=== PATIENT | female | born 1985 | race American Indian/Alaskan Native ===

== ENCOUNTER 2018-02-20 21:26 | Emergency (ER) | payer MEDICAID ==
[~2018-02-20] VITALS: Ht 154.9 cm; Wt 98.2 kg
[~2018-02-20 21:26] MED LIST: BENZ30CR TP; IBUP-1574 PO
[2018-02-20] MEDS ORDERED: orphenadrine citrate 60mg/2ml inj. IM ONE (23:10)
[2018-02-20] MEDS ORDERED: ketorolac trometh inj. 60 MG/2 ML VIAL IM ONE (23:10)
[2018-02-20] MEDS ORDERED: IBUP-1985 PO (23:32)
[2018-02-20] MEDS ORDERED: ORPH100T2 PO (23:32)
[2018-02-20 23:39] VITALS: BP 148/91
== END 2018-02-20 23:42 | disposition home or self-care (01) ==
LOC: ER 21:27
DX: M54.5 Low back pain (principal); M54.6 Pain in thoracic spine; Z88.8 Allergy status to other drugs, medicaments and biological substances
CPT/HCPCS: 96372; 99284; J1885; J2360

== ENCOUNTER 2018-06-17 15:52 | Emergency (ER) | payer MEDICAID, OTHER ==
[~2018-06-17] VITALS: Ht 152.4 cm; Wt 109.1 kg
[~2018-06-17 15:52] MED LIST changes: +IBUP-1985 PO; +ORPH100T2 PO
[2018-06-17 15:55] VITALS: BP 158/107
== END 2018-06-17 17:02 ==
LOC: ER 15:53
DX: Z02.89 Encounter for other administrative examinations (principal); F12.90 Cannabis use, unspecified, uncomplicated; Z88.6 Allergy status to analgesic agent
CPT/HCPCS: 99283

== ENCOUNTER 2018-07-02 22:06 | Inpatient (IN) | payer MEDICAID, OTHER ==
[~2018-07-02] VITALS: Ht 152.4 cm; Wt 111.0 kg
[~2018-07-02 22:06] MED LIST changes: +temazepam 15mg capsule PO PRN
[2018-07-02] MEDS ORDERED: normal saline 1000ML IV soln IV ONE (22:20)
[2018-07-02] MEDS ORDERED: acetaminophen 325mg tablet PO STA (22:20)
[2018-07-02 23:04] LABS: BASOPHILS # (AUTO) 0.1 X10'3 (0-0.2); BASOPHILS % (AUTO) 0.6 % (0-1); EOSINOPHILS # (AUTO) 0.2 X10'3 (0-0.9); EOSINOPHILS % (AUTO) 1.5 % (0-6); HEMATOCRIT 37.1 % (35.0-45.0); HEMOGLOBIN 11.9 g/dl (12.0-16.0); LYMPHOCYTES % (AUTO) 8.6 % (21-51); MEAN CORPUSCULAR HEMOGLOBIN 26.6 PG (27.0-31.0); MEAN CORPUSCULAR VOLUME 83.1 FL (78-98); MEAN PLATELET VOLUME 9.7 FL (7.4-10.4); MONOCYTES # (AUTO) 0.7 X10'3 (0-0.9); MONOCYTES % (AUTO) 5.8 % (2-12); NEUTROPHILS # (AUTO) 9.5 X10'3 (1.8-7.7); NEUTROPHILS % (AUTO) 83.5 % (42-75); PLATELET COUNT 258 X10'3 (140-440); RED BLOOD COUNT 4.47 X10'6 (4.20-5.60); RED CELL DISTRIBUTION WIDTH 16.1 % (11.5-14.5); WHITE BLOOD COUNT 11.4 X10'3 (4.5-11.0)
[2018-07-02 23:10] LABS: ALANINE AMINOTRANSFERASE 29 U/L (12-78); ALBUMIN 3.3 G/DL (3.4-5.0); ALBUMIN/GLOBULIN RATIO 0.8 (1.1-1.5); ALKALINE PHOSPHATASE 70 IU/L (46-116); ANION GAP 10 (8-16); ASPARTATE AMINO TRANSFERASE 46 U/L (10-37); BILIRUBIN,TOTAL 0.2 MG/DL (0.1-1.0); BLOOD UREA NITROGEN 7 MG/DL (7-18); BUN/CREATININE RATIO 7.4 (6.6-38.0); CALCIUM 9.4 MG/DL (8.5-10.1); CHLORIDE 101 MMOL/L (99-107); CREATININE 0.95 MG/DL (0.40-0.90); GLUCOSE 128 MG/DL (70-104); MAGNESIUM 1.4 MG/DL (1.5-2.4); POTASSIUM 3.8 MMOL/L (3.5-5.1); SODIUM 140 MMOL/L (135-145); TOTAL CARBON DIOXIDE 29.4 MMOL/L (24-32); TOTAL PROTEIN 7.2 G/DL (6.4-8.2); eGFR 69 ML/MIN
[2018-07-02] MEDS ORDERED: albuterol 2.5 MG/3 ML nebule NEB ONE (23:35)
[2018-07-02] MEDS ORDERED: CefTRIAXone 2gm/D5W 50ml 50 ML IV ONE (23:45)
[2018-07-03] MEDS ORDERED: potassium Cl 20 mEq SR tablet PO PRN ×2
[2018-07-03] MEDS ORDERED: mag hydrox/Alum hydrox/simeth 30ml oral suspension PO PRN
[2018-07-03] MEDS ORDERED: magnesium 2GM in 50ml NS 50 ML IV PRN
[2018-07-03] MEDS ORDERED: ondansetron/PF 4mg/2ml inj IV PRN
[2018-07-03] MEDS ORDERED: acetaminophen 325mg tablet PO PRN ×2
[2018-07-03] MEDS ORDERED: magnesium hydroxide 30ml (MOM) UD suspension PO PRN
[2018-07-03] MEDS ORDERED: potassium Cl 40MEQ/NS 500ml 500 ML IV PRN ×2
[2018-07-03] MEDS ORDERED: magnesium 4gm in 100ml NS 100 ML IV PRN
[2018-07-03] MEDS ORDERED: ketorolac trometh. 30mg/ml inj. IV ONE
[2018-07-03] MEDS ORDERED: iohexol 350MG/ML 100ml bottle IV ONE (00:47)
[2018-07-03 01:22] LABS: CLARITY,URINE CLEAR (Clear); COLOR,URINE YELLOW (Yellow); GLUCOSE, URINE NEGATIVE (Neg); KETONES,URINE NEGATIVE (Neg); LEUKOCYTE ESTERASE ,URINE NEGATIVE (Neg); NITRITES, URINE NEGATIVE (Neg); OCCULT BLOOD,URINE NEGATIVE (Neg); PROTEIN,URINE NEGATIVE (Neg); UROBILINOGEN,URINE 0.2 E.U/dL (0.2-1.0)
[2018-07-03 01:24] LABS: URINE HCG NEGATIVE (NEG)
[2018-07-03 01:27] LABS: UA COLLECTION TYPE CLN CATCH MIDSTREAM
[2018-07-03 01:34] LABS: URINE AMPHETAMINE SCREEN NEGATIVE (Neg); URINE BARBITUATE SCREEN NEGATIVE (Neg); URINE BENZODIAZEPINES SCREEN POSITIVE (Neg); URINE CANNABINOID SCREEN POSITIVE (Neg); URINE COCAINE SCREEN NEGATIVE (Neg); URINE METHADONE SCREEN NEGATIVE (Neg); URINE OPIATE SCREEN NEGATIVE (Neg); URINE PHENCYCLIDINE SCREEN NEGATIVE (Neg)
--- NOTE | 2018-07-03 01:52 | NUR ---
PT BACK FROM CT - RESTING ON [facility]
--- NOTE | 2018-07-03 04:30 | NUR ---
Received report from ER nurse Jeannette BILL. Will assume patient care.
[2018-07-03 04:55] VITALS: BP 105/65
[2018-07-03] MEDS: magnesium Cl slow-release 64mg tablet PO PRN ×2 (04:57→17:10)
[2018-07-03] MEDS: HYDROcodone/acetaminophen 5mg/325mg tablet PO PRN ×5 (05:07→22:02)
--- NOTE | 2018-07-03 06:34 | NUR ---
Report given to Misa BILL.
[2018-07-03 07:00] VITALS: BP 113/63
--- NOTE | 2018-07-03 07:00 | NUR ---
Patient in room [facility]. I have received report from Isabelle and had the opportunity to ask questions and assume patient care. Addendum: 07/03/18 at 1047 by Misa Conroy RN Amended: Links added.
[2018-07-03] MEDS: K and/or MAG REPLACEMENT MC SCH (08:00)
[2018-07-03] MEDS ORDERED: BACL10TA PO (08:38)
[2018-07-03] MEDS ORDERED: OLAN5TAB5 PO (08:40)
[2018-07-03] MEDS ORDERED: FLUO20CA39 PO (08:41)
[2018-07-03] MEDS: furosemide 20 MG/2 ML vial IV SCH ×2 (10:01→20:03)
[2018-07-03] MEDS: levoFLOXACIN-Levaquin 750MG/D5 150 ML IV SCH (10:02)
[2018-07-03] MEDS: morphine 2 MG/ML inj. syringe IV PRN ×3 (11:09→20:08)
[2018-07-03 12:00] VITALS: BP 108/66
[2018-07-03] MEDS: albuterol 2.5 MG/3 ML nebule NEB PRN ×2 (16:07→19:34)
[2018-07-03 18:00] VITALS: BP 121/71
--- NOTE | 2018-07-03 18:26 | NUR ---
Problems reprioritized. Patient report given, questions answered & plan of care reviewed with Jesus Manuel. Addendum: 07/03/18 at 1827 by Misa Conroy RN Amended: Links added.
--- NOTE | 2018-07-03 18:30 | NUR ---
Patient in room [facility]. I have received report from Misa BILL and had the opportunity to ask questions and assume patient care. Pt has family visiting at this time.
[2018-07-03] MEDS: lactobacillus rhamnosus 10,000 MMU CELLS/CAPSULE PO SCH (20:02)
[2018-07-03] MEDS: baclofen 10mg tablet PO SCH (20:02)
[2018-07-03 23:00] VITALS: BP 116/71
[2018-07-04] MEDS: morphine 2 MG/ML inj. syringe IV PRN ×5 (00:17→20:51)
[2018-07-04] MEDS: HYDROcodone/acetaminophen 5mg/325mg tablet PO PRN ×5 (03:15→22:40)
[2018-07-04 05:58] LABS: MAGNESIUM 1.7 MG/DL (1.5-2.4); POTASSIUM 3.8 MMOL/L (3.5-5.1)
--- NOTE | 2018-07-04 06:30 | NUR ---
Problems reprioritized. Patient report given, questions answered & plan of care reviewed with Batsheva BILL.
--- NOTE | 2018-07-04 06:31 | NUR ---
Patient in room [facility]. I have received report from FLY Ken and had the opportunity to ask questions and assume patient care.
[2018-07-04 07:07] VITALS: BP 115/70
[2018-07-04] MEDS: K and/or MAG REPLACEMENT MC SCH (08:00)
[2018-07-04] MEDS: furosemide 20 MG/2 ML vial IV SCH ×2 (08:05→19:56)
[2018-07-04] MEDS: lactobacillus rhamnosus 10,000 MMU CELLS/CAPSULE PO SCH ×2 (08:05→19:56)
[2018-07-04] MEDS: levoFLOXACIN-Levaquin 750MG/D5 150 ML IV SCH (08:06)
[2018-07-04] MEDS: OLANZapine 5mg rapidly disint. tablet PO SCH (08:06)
[2018-07-04] MEDS: albuterol 2.5 MG/3 ML nebule NEB PRN (11:28)
[2018-07-04 11:30] VITALS: BP 118/71
[2018-07-04 18:00] VITALS: BP 109/63
--- NOTE | 2018-07-04 18:30 | NUR ---
Patient in room [facility]. I have received report from Batsheva BILL and had the opportunity to ask questions and assume patient care.
[2018-07-04] MEDS: baclofen 10mg tablet PO SCH (20:00)
[2018-07-04 23:59] VITALS: BP 115/49
[2018-07-05] MEDS: morphine 2 MG/ML inj. syringe IV PRN ×3 (00:53→12:13)
[2018-07-05] MEDS: HYDROcodone/acetaminophen 5mg/325mg tablet PO PRN ×2 (05:09→09:59)
--- NOTE | 2018-07-05 06:25 | NUR ---
Patient in room [facility]. I have received report from VIANEY BILL and had the opportunity to ask questions and assume patient care.
--- NOTE | 2018-07-05 06:39 | NUR ---
Problems reprioritized. Patient report given, questions answered & plan of care reviewed with LIBBY BILL.
[2018-07-05 06:43] LABS: ANION GAP 8 (8-16); BLOOD UREA NITROGEN 9 MG/DL (7-18); BUN/CREATININE RATIO 11.8 (6.6-38.0); CALCIUM 9.5 MG/DL (8.5-10.1); CHLORIDE 100 MMOL/L (99-107); CREATININE 0.76 MG/DL (0.40-0.90); GLUCOSE 118 MG/DL (70-104); MAGNESIUM 1.8 MG/DL (1.5-2.4); POTASSIUM 3.8 MMOL/L (3.5-5.1); SODIUM 137 MMOL/L (135-145); TOTAL CARBON DIOXIDE 29.4 MMOL/L (24-32); eGFR 89 ML/MIN
[2018-07-05 07:00] VITALS: BP 127/61
[2018-07-05] MEDS: K and/or MAG REPLACEMENT MC SCH (07:17)
[2018-07-05] MEDS: albuterol 2.5 MG/3 ML nebule NEB PRN (07:24)
[2018-07-05] MEDS: lactobacillus rhamnosus 10,000 MMU CELLS/CAPSULE PO SCH (07:25)
[2018-07-05] MEDS: levoFLOXACIN-Levaquin 750MG/D5 150 ML IV SCH (07:25)
[2018-07-05] MEDS: furosemide 20 MG/2 ML vial IV SCH (07:25)
[2018-07-05] MEDS: OLANZapine 5mg rapidly disint. tablet PO SCH (07:28)
[2018-07-05] MEDS ORDERED: FURO-150 PO (08:54)
[2018-07-05] MEDS ORDERED: LEVO750T21 PO (08:54)
--- NOTE | 2018-07-05 10:04 | NUR ---
O2 Sat at rest on room air:_87__% If below 89%: Recovery O2 Sat at rest on ___LPM:___%:4___% via__nc (mask/nasal cannula, etc..) No further documentation is necessary. If O2 Sat did not drop below 89% on room air,ambulate patient on room air. O2 Sat while ambulating on room air:___% Recovery O2 Sat while ambulating on ___LPM:___% No further documentation is necessary. If patient does not drop below 89% while ambulating, he/she does not qualify for home O2.
--- NOTE | 2018-07-05 14:03 | NUR ---
PT DISCHARGED IN STABLE CONDITION. LEFT WITH PORTABLE 02. IV DC CANULA INTACT. ALL BELONGINGS IN HAND. FOLLOW UP INSTRUCTIONS GIVEN, ALL QUESTIONS ANSWERED. Addendum: 07/05/18 at 1404 by Delfina Colin RN Amended: Links added.
== END 2018-07-05 14:05 | disposition home or self-care (01) | DRG 133 ==
LOC: ER 22:06 → ED HOLD 23:59 → OBSVTOIN 23:59 → EDBEDREQ 07-03 03:44 → SUR 3N 07-03 04:30 → CMPBEDREQ 07-03 04:53
PROVIDERS: ADMIT Hospitalist; ATTEND Internal Medicine
DX: J96.01 Acute respiratory failure with hypoxia (principal); J18.9 Pneumonia, unspecified organism; E87.2 Acidosis; I27.81 Cor pulmonale (chronic); E83.42 Hypomagnesemia; E66.01 Morbid (severe) obesity due to excess calories; I50.9 Heart failure, unspecified; F12.90 Cannabis use, unspecified, uncomplicated; J20.9 Acute bronchitis, unspecified; G47.30 Sleep apnea, unspecified; F17.210 Nicotine dependence, cigarettes, uncomplicated; Z68.42 Body mass index [BMI] 45.0-49.9, adult
CPT/HCPCS: 36415; 71045; 71275; 80048; 80053; 80305; 81003; 81025; 83605; 83735; 83880; 84132; 84145; 84443; 85025; 87040; 87070; 87502; 87503; 93005; 93306; 94640; 94760; 96360; 99285; G0378; J0696; J1885; J1940; J1956; J2270; Q9967

== ENCOUNTER 2018-08-09 19:30 | Emergency (ER) | payer MEDICAID, OTHER ==
[~2018-08-09] VITALS: Ht 152.4 cm; Wt 95.5 kg
[~2018-08-09 19:30] MED LIST changes: +BACL10TA PO; -BENZ30CR TP; +FLUO20CA39 PO; +FURO-150 PO; -IBUP-1574 PO; -IBUP-1985 PO; +OLAN5TAB5 PO; -ORPH100T2 PO; -temazepam 15mg capsule PO PRN
[2018-08-09 19:37] VITALS: BP 126/78
[2018-08-09] MEDS ORDERED: HYDROcodone/acetaminophen 5mg/325mg tablet PO ONE (21:45)
[2018-08-09] MEDS ORDERED: CEPH-572 PO (21:50)
[2018-08-09] MEDS ORDERED: IBUP-1985 PO (21:53)
== END 2018-08-09 21:59 | disposition home or self-care (01) ==
LOC: ER 19:31
DX: L02.411 Cutaneous abscess of right axilla (principal); L03.111 Cellulitis of right axilla; F12.90 Cannabis use, unspecified, uncomplicated; Z88.8 Allergy status to other drugs, medicaments and biological substances; Z79.899 Other long term (current) drug therapy
CPT/HCPCS: 99283

== ENCOUNTER 2019-09-12 20:27 | Emergency (ER) | payer MEDICAID ==
[~2019-09-12] VITALS: Ht 152.4 cm; Wt 109.1 kg
[~2019-09-12 20:27] MED LIST changes: +IBUP-1985 PO
[2019-09-12] MEDS ORDERED: fentaNYL/PF 50MCG/1 ML 2ML syringe IM ONE (21:00)
[2019-09-12] MEDS ORDERED: fentaNYL/PF 50MCG/1 ML 2ML syringe IV ONE (21:00)
--- NOTE | 2019-09-12 21:40 | NUR ---
CALLED [facility]ISHER JETHRO AT [phone]
[2019-09-12] MEDS ORDERED: morphine 10mg/ml inj. IM ONE (22:30)
[2019-09-12] MEDS ORDERED: DOCU100C40 PO (22:50)
[2019-09-12] MEDS ORDERED: HYDR-3965 PO (22:50)
--- NOTE | 2019-09-12 22:52 | NUR ---
account technician completed Ortho orders.
[2019-09-12] MEDS ORDERED: CEPH-572 PO (22:59)
[2019-09-12 23:32] VITALS: BP 136/82
== END 2019-09-12 23:36 | disposition home or self-care (01) ==
LOC: ER 20:27
DX: S82.832A Other fracture of upper and lower end of left fibula, initial encounter for closed fracture (principal); S82.122A Displaced fracture of lateral condyle of left tibia, initial encounter for closed fracture; F31.9 Bipolar disorder, unspecified; F12.90 Cannabis use, unspecified, uncomplicated; Z79.2 Long term (current) use of antibiotics; Z79.899 Other long term (current) drug therapy; W10.9XXA Fall (on) (from) unspecified stairs and steps, initial encounter; Y93.E5 Activity, floor mopping and cleaning; Y92.89 Other specified places as the place of occurrence of the external cause; Y99.8 Other external cause status
CPT/HCPCS: 29515; 73590; 73610; 96372; 99284; J2270; J3010

== ENCOUNTER 2019-09-22 10:47 | Day surgery (SDC) | payer MEDICAID ==
[~2019-09-22] VITALS: Ht 152.4 cm; Wt 108.9 kg
[2019-09-22] VITALS (23 sets, daily range): BP systolic 122–158; BP diastolic 86–98
[~2019-09-22 10:47] MED LIST changes: +DOCU100C40 PO; +cefazolin/dext.iso 2gm/50ml 50 ML IV ONE; +famotidine 20mg tablet PO ONE; +ringers solution, lacted 1,000 ML IV SCH; +vancomycin 1,500 MG in NS 300ml IV soln IV ONE
--- NOTE | 2019-09-22 11:00 | NUR ---
COVID 19 VERBAL SCREENING COMPLETED. PASSED ALL QUESTIONS.
[2019-09-22] MEDS ORDERED: ringers solution, lacted 1,000 ML IV SCH (12:48)
[2019-09-22] MEDS ORDERED: ondansetron/PF 4mg/2ml inj IV PRN (12:50)
[2019-09-22] MEDS ORDERED: meperidine/PF 25mg/ml syringe IV PRN ×2 (12:50)
[2019-09-22] MEDS ORDERED: proCHLORperazine 10 MG/2 ml inj IV PRN (12:50)
[2019-09-22] MEDS ORDERED: morphine 2 MG/ML inj. syringe IV PRN (12:50)
[2019-09-22 12:57] LABS: BASOPHILS % (AUTO) 0.5 % (0-1); EOSINOPHILS # (AUTO) 0.2 X10'3 (0-0.9); EOSINOPHILS % (AUTO) 2.7 % (0-6); LYMPHOCYTES # (AUTO) 1.9 X10'3 (1.1-4.8); LYMPHOCYTES % (AUTO) 28.1 % (21-51); MEAN CORPUSCULAR HEMOGLOBIN 28.9 PG (27.0-31.0); MEAN CORPUSCULAR HGB CONC 32.7 g/dL (33.0-36.5); MEAN CORPUSCULAR VOLUME 88.4 FL (78-98); MEAN PLATELET VOLUME 9.5 FL (7.4-10.4); MONOCYTES # (AUTO) 0.5 X10'3 (0-0.9); MONOCYTES % (AUTO) 7.9 % (2-12); NEUTROPHILS % (AUTO) 60.8 % (42-75); PRE OP HEMATOCRIT 44.5 % (35.0-45.0); PRE OP HEMOGLOBIN 14.5 g/dL (12.0-16.0); PRE OP PLATELET COUNT 338 X10'3 (140-440); RED BLOOD COUNT 5.03 X10'6 (4.20-5.60); RED CELL DISTRIBUTION WIDTH 13.8 % (11.5-14.5)
[2019-09-22 13:17] LABS: HCG SERUM QL NEGATIVE
[2019-09-22] MEDS ORDERED: NO HOME MEDS (13:34)
[2019-09-22] MEDS ORDERED: fentaNYL/PF 50MCG/1 ML 2ML syringe ONE ×2 (13:40→14:33)
[2019-09-22] MEDS ORDERED: MIDAZolam 5mg/5ml vial ONE (13:40)
[2019-09-22] MEDS ORDERED: ROPIVAcaine 0.5% (5mg/ml) 30ml vial ONE (13:41)
[2019-09-22] MEDS ORDERED: ondansetron/PF 4mg/2ml inj ONE (13:47)
[2019-09-22] MEDS ORDERED: sevoflurane 250ml liquid IH ONE (13:47)
[2019-09-22] MEDS ORDERED: propofol inj 20 ML IV ONE (14:28)
[2019-09-22] MEDS ORDERED: dexamethasone sod phosphate 4mg/ml inj. ONE (14:28)
[2019-09-22] MEDS ORDERED: LIDOcaine 2% (20mg/ml) 5ml vial ONE (14:28)
[2019-09-22] MEDS ORDERED: ketorolac trometh. 30mg/ml inj. ONE (15:25)
--- NOTE | 2019-09-22 15:30 | NUR ---
Received from OR via [facility], accompanied by Anesthesiologist DR COX and report given by Anesthesiologist. PT DROWSY, PAINFUL, LEFT ANKLE/FOOT/LOWER LEG IN SPLINT W/ANDREW WRAP COVERING, TOES PWD, NETWORK RELAY TESTER 1-2 SECONDS. Addendum: 09/22/19 at 1617 by Monica Mott RN Amended: Links added.
[2019-09-22] MEDS: meperidine/PF 25mg/ml syringe IV PRN ×4 (15:34→16:43)
[2019-09-22] MEDS: morphine 4 MG/ML inj SYRINge IV PRN ×6 (15:47→19:24)
[2019-09-22] MEDS ORDERED: HYDROcodone/acetaminophen 10/325mg tab PO ONE (16:55)
[2019-09-22] MEDS ORDERED: acetaminophen 1,000mg/100ml IV 100 ML IV ONE (16:55)
[2019-09-22] MEDS ORDERED: ketorolac trometh. 30mg/ml inj. IV ONE (16:55)
[2019-09-22] MEDS ORDERED: ketamine 50 mg/ml 10ml vial IV ONE (17:55)
[2019-09-22] MEDS ORDERED: normal saline 1000ml 1,000 ML IV SCH (20:11)
[2019-09-22] MEDS ORDERED: potassium CL 10mEq/100ml bag 100 ML IV PRN ×2 (20:15)
[2019-09-22] MEDS ORDERED: magnesium Cl slow-release 64mg tablet PO PRN (20:15)
[2019-09-22] MEDS ORDERED: magnesium 4gm in 100ml NS 100 ML IV PRN (20:15)
[2019-09-22] MEDS ORDERED: potassium Cl 20 mEq SR tablet PO PRN ×2 (20:15)
[2019-09-22] MEDS ORDERED: magnesium hydroxide 30ml (MOM) UD suspension PO PRN (20:15)
[2019-09-22] MEDS ORDERED: magnesium 2GM in 50ml NS 50 ML IV PRN (20:15)
--- NOTE | 2019-09-22 20:25 | NUR ---
Patient in room [facility] 4015. I have received report from FLY Anderson in OR and had the opportunity to ask questions and assume patient care.
--- NOTE | 2019-09-22 20:30 | NUR ---
Report called to receiving nurse. Transferred via BED, 1 BAG OF Belongings, CELL PHONE W/MANAGER ZONE SENT W/PT TO ROOM 4015A, PT TRANSFERRED TO ORTHO BED, TOLERATED FAIR, REMAINS PAINFUL, VSS, ADULT HEALTH CLINICAL NURSE SPECIALIST AT BEDSIDE TO RECEIVE PT. Special Issues communicated to receiving nurse. YES. Addendum: 09/22/19 at 2046 by oMnica Mott RN Amended: Links added.
--- NOTE | 2019-09-22 22:07 | NUR ---
Call to Dr. Laurent re pain management. Pt states she is in a lot of pain, no pain meds ordered. said she had a lot of pain meds post op and will she her soon and did not order anything at this time. I told her she may leave ama.
--- NOTE | 2019-09-22 22:10 | NUR ---
Received report from Kary BILL. Have been advised that patient is threatening to leave AMA is does not see her soon. Addendum: 09/23/19 at 0007 by Heather Hernandez RN If MD does not see her soon
--- NOTE | 2019-09-22 22:15 | NUR ---
Dr Laurent in to see patient.
[2019-09-22] MEDS ORDERED: traMADol 50MG tablet PO PRN (22:20)
--- NOTE | 2019-09-22 22:20 | NUR ---
Resource nurse went in to attach tele monitor and found patient on her phone instructing her to come pick her up as she wanted to leave. I went in to explain that Dr Laurent had written an order for pain medication and that also the surgeon had called back with orders also and we were awaiting pharmacy to verify. Patient stated that she didn't care as she had "been waiting 6 hours for pain medicine" and would take pain medicine at home if she needed it. Of note, patient did not get to floor until around 2044. Discussed that the MD had wanted patient to stay so that we could monitor her heart and o2 sats after all the medicine that she had received in the recovery room, but patient just stated " I don't care, I am leaving and that doctor lied to me". Unable to change patients mind. AMA form signed and patient was taken down to lobby via w/c along with all of her personal belongings. Addendum: 09/23/19 at 0041 by Heather Hernandez RN Patients dressing to LLE intact w/o any sign of drainage. All toes to L foot swollen, but patient stated able to feel and no tingling or numbness.
[2019-09-23] MEDS ORDERED: K and/or MAG REPLACEMENT MC SCH (08:00)
[2019-09-23] MEDS ORDERED: docusate sod 100mg capsule PO SCH (08:00)
== END 2019-09-22 22:40 | disposition home or self-care (01) ==
LOC: PAS 10:47 → UNDOADMIN 20:11 → ORTHO 4S 20:11 → PAS 22:40 → UNDODISIN 22:40
PROVIDERS: ATTEND Orthopaedic Surgery
DX: S82.852A Displaced trimalleolar fracture of left lower leg, initial encounter for closed fracture (principal); G47.30 Sleep apnea, unspecified; G89.18 Other acute postprocedural pain; E66.01 Morbid (severe) obesity due to excess calories; Z68.42 Body mass index [BMI] 45.0-49.9, adult; F17.210 Nicotine dependence, cigarettes, uncomplicated; Z88.8 Allergy status to other drugs, medicaments and biological substances; Z79.899 Other long term (current) drug therapy; W19.XXXA Unspecified fall, initial encounter; Y93.89 Activity, other specified; Y92.89 Other specified places as the place of occurrence of the external cause; Y99.8 Other external cause status
CPT/HCPCS: 27822; 36415; 64445; 64447; 73600; 76000; 84703; 85025; A6222; C1713; J0131; J1100; J1885; J2001; J2175; J2250; J2270; J2405; J2704; J3010; J3370; J7030; J7040; J7120; A4618; A6449; A7000; G0378; J2795

== ENCOUNTER 2020-02-13 14:03 | Emergency (ER) | payer MEDICAID ==
[~2020-02-13] VITALS: Ht 152.4 cm; Wt 112.4 kg
[~2020-02-13 14:03] MED LIST changes: -BACL10TA PO; -DOCU100C40 PO; -FLUO20CA39 PO; -FURO-150 PO; -IBUP-1985 PO; +NO HOME MEDS; -OLAN5TAB5 PO; -cefazolin/dext.iso 2gm/50ml 50 ML IV ONE; -famotidine 20mg tablet PO ONE; -ringers solution, lacted 1,000 ML IV SCH; -vancomycin 1,500 MG in NS 300ml IV soln IV ONE
[2020-02-13 16:30] VITALS: BP 160/98
== END 2020-02-13 16:33 | disposition home or self-care (01) ==
LOC: ER 14:04
DX: R05 Cough (principal); R06.02 Shortness of breath; M79.10 Myalgia, unspecified site; F31.9 Bipolar disorder, unspecified; F12.10 Cannabis abuse, uncomplicated; Z88.2 Allergy status to sulfonamides
CPT/HCPCS: 36415; 99281

== ENCOUNTER 2020-03-31 11:23 | Emergency (ER) | payer MEDICAID ==
[~2020-03-31] VITALS: Ht 154.9 cm; Wt 106.0 kg
[2020-03-31 11:57] LABS: MONOCYTES # (AUTO) 0.5 X10'3 (0-0.9)
[2020-03-31 11:59] LABS: BASOPHILS # (AUTO) 0.1 X10'3 (0-0.2); BASOPHILS % (AUTO) 0.8 % (0-1); EOSINOPHILS # (AUTO) 0.1 X10'3 (0-0.9); EOSINOPHILS % (AUTO) 1.8 % (0-6); HEMATOCRIT 45.5 % (35.0-45.0); HEMOGLOBIN 15.3 g/dl (12.0-16.0); LYMPHOCYTES # (AUTO) 2.1 X10'3 (1.1-4.8); LYMPHOCYTES % (AUTO) 30.5 % (21-51); MEAN CORPUSCULAR HEMOGLOBIN 30.3 PG (27.0-31.0); MEAN CORPUSCULAR HGB CONC 33.7 g/dL (33.0-36.5); MEAN CORPUSCULAR VOLUME 90.1 FL (78-98); MEAN PLATELET VOLUME 10.7 FL (7.4-10.4); MONOCYTES % (AUTO) 6.8 % (2-12); NEUTROPHILS # (AUTO) 4.2 X10'3 (1.8-7.7); NEUTROPHILS % (AUTO) 60.1 % (42-75); PLATELET COUNT 260 X10'3 (140-440); RED BLOOD COUNT 5.05 X10'6 (4.20-5.60); WHITE BLOOD COUNT 6.9 X10'3 (4.5-11.0)
[2020-03-31 12:03] LABS: ALANINE AMINOTRANSFERASE 60 U/L (12-78); ALBUMIN 3.9 G/DL (3.4-5.0); ALKALINE PHOSPHATASE 75 IU/L (46-116); ANION GAP 7 (8-16); ASPARTATE AMINO TRANSFERASE 65 U/L (10-37); BILIRUBIN,TOTAL 0.4 MG/DL (0.1-1.0); BLOOD UREA NITROGEN 4 MG/DL (7-18); BUN/CREATININE RATIO 5.2 (6.6-38.0); CALCIUM 9.2 MG/DL (8.5-10.1); CHLORIDE 104 MMOL/L (99-107); CREATININE 0.77 MG/DL (0.40-0.90); GLUCOSE 94 MG/DL (70-104); POTASSIUM 3.7 MMOL/L (3.5-5.1); SODIUM 141 MMOL/L (135-145); TOTAL CARBON DIOXIDE 29.6 MMOL/L (24-32); eGFR 87 ML/MIN
[2020-03-31] MEDS ORDERED: HYDROcodone/acetaminophen 10/325mg tab PO ONE (12:15)
[2020-03-31] MEDS ORDERED: morphine 4 MG/ML inj SYRINge IV ONE (12:15)
[2020-03-31] MEDS ORDERED: ketorolac trometh. 30mg/ml inj. IV ONE (12:15)
[2020-03-31] MEDS ORDERED: HYDR-4353 PO (12:22)
[2020-03-31] MEDS ORDERED: IBUP-1986 PO (12:22)
[2020-03-31] MEDS ORDERED: ORPH100T2 PO (13:03)
[2020-03-31 13:14] LABS: LARGE PLATELETS FEW; PLATELET ESTIMATE NORMAL
[2020-03-31 13:28] VITALS: BP 141/94
[2020-03-31] MEDS ORDERED: CYCL-1 PO (16:09)
== END 2020-03-31 13:37 | disposition home or self-care (01) ==
LOC: ER 11:23
DX: M54.6 Pain in thoracic spine (principal); M79.18 Myalgia, other site; M25.512 Pain in left shoulder; R07.89 Other chest pain; F31.9 Bipolar disorder, unspecified; F12.90 Cannabis use, unspecified, uncomplicated; Z88.8 Allergy status to other drugs, medicaments and biological substances; Z79.899 Other long term (current) drug therapy
CPT/HCPCS: 36415; 71045; 80053; 83880; 84484; 85008; 85025; 93005; 96374; 96375; 99285; J1885; J2270

== ENCOUNTER 2020-10-02 18:03 | Emergency (ER) | payer MEDICAID ==
[~2020-10-02] VITALS: Ht 152.4 cm; Wt 103.2 kg
[~2020-10-02 18:03] MED LIST changes: +CYCL-1 PO; +IBUP-1986 PO; +ORPH100T2 PO
[2020-10-02] MEDS ORDERED: ibuprofen tablet 400 MG TABLET PO ONE (19:20)
[2020-10-02] MEDS ORDERED: acetaminophen 325mg tablet PO ONE (19:20)
[2020-10-02] MEDS ORDERED: ibuprofen 200mg tablet PO ONE (19:20)
[2020-10-02] MEDS ORDERED: METH4TAB81 PO (19:49)
[2020-10-02] MEDS ORDERED: ketorolac trometh. 30mg/ml inj. IM ONE (19:50)
[2020-10-02 20:14] VITALS: BP 110/78
== END 2020-10-02 20:15 | disposition home or self-care (01) ==
LOC: ER 18:03
DX: M54.31 Sciatica, right side (principal); M54.5 Low back pain; F31.9 Bipolar disorder, unspecified; F12.90 Cannabis use, unspecified, uncomplicated; Z88.8 Allergy status to other drugs, medicaments and biological substances; Z79.899 Other long term (current) drug therapy
CPT/HCPCS: 96372; 99283; J1885

== ENCOUNTER 2020-11-14 14:47 | Emergency (ER) | payer MEDICAID ==
[~2020-11-14] VITALS: Ht 152.4 cm; Wt 100.0 kg
[~2020-11-14 14:47] MED LIST changes: +METH4TAB81 PO
[2020-11-14 14:57] VITALS: BP 132/82
[2020-11-14] MEDS ORDERED: ketorolac tromethamine 15mg/ml inj. IM ONE (17:00)
[2020-11-14] MEDS ORDERED: cyclobenzaprine 10mg tablet PO ONE (17:00)
[2020-11-14] MEDS ORDERED: CYCL-1 PO (17:11)
[2020-11-14] MEDS ORDERED: IBUP-1984 PO (17:11)
== END 2020-11-15 | disposition home or self-care (01) ==
LOC: ER 11-15 03:33
DX: M54.41 Lumbago with sciatica, right side (principal); F12.90 Cannabis use, unspecified, uncomplicated; Z88.8 Allergy status to other drugs, medicaments and biological substances; Z79.899 Other long term (current) drug therapy
CPT/HCPCS: 96372; 99283; J1885